=== PATIENT | male | born 2005 | race Caucasian/White ===

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

== ENCOUNTER 2024-09-29 20:06 | Emergency (ER) | payer OTHER ==
[2024-09-29 20:10] VITALS: BP 122/83; PULSE 73; RESP 18; TEMP 98.3; BMI 24.3
[2024-09-29] MEDS ORDERED: IBUPROFEN 600 MG TABLET (FP) PO ONE (23:03)
[2024-09-29] MEDS: IBUPROFEN 600 MG TABLET (FP) PO ONE (23:05)
== END 2024-09-29 23:05 | disposition home or self-care (01) ==
LOC: FER 20:06
DX: N50.3 Cyst of epididymis (principal); N50.82 Scrotal pain
CPT/HCPCS: 76870-TC; 99284-25